=== PATIENT | female | born 1935 ===

== ENCOUNTER 2017-08-22 12:39 | Inpatient (IN) | payer OTHER ==
[~2017-08-22] VITALS: Ht 152.4 cm; Wt 68.0 kg
[2017-08-22] MEDS ORDERED: PRILOSEC OTC20 MG PO (13:43)
[2017-08-22] MEDS ORDERED: ISOSORBIDE MONO60 MG PO (13:43)
[2017-08-22] MEDS ORDERED: COZAAR100 MG PO (13:43)
[2017-08-22] MEDS ORDERED: LIPITOR20 MG PO (13:43)
[2017-08-22] MEDS ORDERED: PLAVIX75 MG PO (13:44)
[2017-08-22] MEDS ORDERED: TOPROL XL50 M1 PO (13:44)
[2017-08-22] MEDS ORDERED: NORVASC5 MG PO (13:44)
[2017-08-22] MEDS ORDERED: LEVO-T100 MCG PO (13:45)
[2017-08-22] MEDS ORDERED: LANTUS SOL100 UNIT/1 (13:45)
[2017-08-22] MEDS ORDERED: REGLAN5 MG/5 ML PO (13:45)
[2017-09-05] MEDS ORDERED: ISOSORBIDE MONO30 MG PO (09:22)
[2017-09-05] MEDS ORDERED: AMLODIPINE BESYL5 MG PO (09:22)
[2017-09-05] MEDS ORDERED: CLOPIDOGREL BIS75 MG PO (09:22)
[2017-09-05] MEDS ORDERED: LOSARTAN POTAS100 MG PO (09:22)
[2017-09-05] MEDS ORDERED: Coreg 6.25MG TABLET PO (09:22)
== END 2017-09-05 11:01 | disposition home or self-care (01) | DRG 329 ==
LOC: O/R 08-28 06:53 → SURG 08-28 06:53 → O/R 08-28 12:45 → EDBD 08-28 12:45 → SURG 08-28 15:19 → O/R 08-28 15:45 → SURG 09-05 11:01
PROVIDERS: Colon & Rectal Surgery
PROC: 07TC4ZZ Resection of Pelvis Lymphatic, Percutaneous Endoscopic Approach (ICD-10-PCS; 2017-08-28)
PROC: 0DBU4ZZ Excision of Omentum, Percutaneous Endoscopic Approach (ICD-10-PCS; 2017-08-28)
PROC: 3E0F7GC Introduction of Other Therapeutic Substance into Respiratory Tract, Via Natural or Artificial Opening (ICD-10-PCS; 2017-08-28)
PROC: 0WQF4ZZ Repair Abdominal Wall, Percutaneous Endoscopic Approach (ICD-10-PCS; 2017-08-28)
PROC: 0DTK4ZZ Resection of Ascending Colon, Percutaneous Endoscopic Approach (ICD-10-PCS; principal; 2017-08-28 15:45)
PROC: 4A033R1 Measurement of Arterial Saturation, Peripheral, Percutaneous Approach (ICD-10-PCS; 2017-08-30)
PROC: B246ZZZ Ultrasonography of Right and Left Heart (ICD-10-PCS; 2017-08-31)
PROC: 30233N1 Transfusion of Nonautologous Red Blood Cells into Peripheral Vein, Percutaneous Approach (ICD-10-PCS; 2017-08-31)
DX: D12.2 Benign neoplasm of ascending colon (principal); I21.4 Non-ST elevation (NSTEMI) myocardial infarction; I97.191 Other postprocedural cardiac functional disturbances following other surgery; D62 Acute posthemorrhagic anemia; K56.0 Paralytic ileus; K91.89 Other postprocedural complications and disorders of digestive system; K43.9 Ventral hernia without obstruction or gangrene; K57.30 Diverticulosis of large intestine without perforation or abscess without bleeding; I10 Essential (primary) hypertension; I25.10 Atherosclerotic heart disease of native coronary artery without angina pectoris; E11.9 Type 2 diabetes mellitus without complications; J44.9 Chronic obstructive pulmonary disease, unspecified; E03.8 Other specified hypothyroidism; I73.89 Other specified peripheral vascular diseases